=== PATIENT | female | born 1950 | race Caucasian/White ===

== ENCOUNTER 2023-06-17 10:17 | Emergency (ER) | payer OTHER, MEDICARE ==
[~2023-06-17] VITALS: Ht 162.6 cm; Wt 94.3 kg
[2023-06-17 10:33] VITALS: BP_SYST 151; PULSE 76; RESP 15; TEMP 97.8; O2SAT 94
[2023-06-17] MEDS ORDERED: AMOX-423 PO (11:40)
[2023-06-17 11:56] VITALS: BP_SYST 151; PULSE 76; RESP 15; TEMP 97.8; O2SAT 94
== END 2023-06-17 11:55 | disposition home or self-care (01) ==
LOC: SED 10:17
DX: J32.9 Chronic sinusitis, unspecified (principal); Z60.2 Problems related to living alone; Z98.890 Other specified postprocedural states; Z79.2 Long term (current) use of antibiotics
CPT/HCPCS: 99283

== ENCOUNTER 2023-07-10 21:06 | Emergency (ER) | payer OTHER, MEDICARE ==
[~2023-07-10] VITALS: Ht 162.6 cm; Wt 94.3 kg
[~2023-07-10 21:06] MED LIST: AMOX-423 PO
[2023-07-10 21:22] VITALS: BP_SYST 129; PULSE 74; RESP 16; TEMP 97.3; O2SAT 94
[2023-07-10] MEDS ORDERED: LIDO1ADH91 ID (22:38)
[2023-07-10 22:45] VITALS: BP_SYST 129; PULSE 74; RESP 16; TEMP 97.3; O2SAT 94
== END 2023-07-10 22:47 | disposition home or self-care (01) ==
LOC: SED 21:06
DX: S22.31XA Fracture of one rib, right side, initial encounter for closed fracture (principal); W22.8XXA Striking against or struck by other objects, initial encounter; Y93.89 Activity, other specified; Y92.89 Other specified places as the place of occurrence of the external cause; Y99.8 Other external cause status
CPT/HCPCS: 71100; 99283